=== PATIENT | female | born 1995 | race Caucasian/White ===

== ENCOUNTER → 2017-11-02 | Day surgery (SDC) | payer OTHER ==
[2017-10-16 09:39] VITALS: Ht 165.1 cm; Wt 122.7 kg
[2017-10-23 10:46] LABS: CALCIUM 9.1 mg/dl (8.5-10.1); CREATININE 0.84 mg/dl (0.60-1.20); POTASSIUM 4.1 mmol/L (3.5-5.1)
[~2017-11-02] VITALS: Ht 165.1 cm; Wt 122.7 kg
[~2017-11-02] MED LIST: ATROPINE SULFATE 0.1 MG/ML 5ML SYR IV PRN; BUPIVACAINE 0.25% 30 ML VIAL ONE; CEFAZOLIN 3000MG IV PUSH 22.5 ML IV SCH; DEXAMETHASONE SOD INJ 4 MG/ML VIAL ONE; EpINEphrine INJ 1MG/ML AMP 1 MG/ML AMP ONE; FENTANYL CITRATE INJ 50 MCG/1 ML 2 ML VIAL IV PRN; FENTANYL CITRATE INJ 50 MCG/1 ML 2 ML VIAL ONE; HYDR-5688 PO; HYDROCODONE/ACETAMIN 5/325MG TAB PO PRN; KETOROLAC TROMETHAMINE 30 MG/ML VIAL IV. PRN; LACTATED RINGER'S 1000ML 1,000 ML IV SCH; LIDOCAINE HCL 2% 2 ML VIAL (20MG/ML) ONE; LIDOCAINE HCL 2% LOCAL 20 ML VIAL ONE; MIDAZOLAM HCL 1 MG/ML 2ML VIAL ONE; ONDANSETRON INJ 2 MG/ML 2 ML VIAL IV PRN; ONDANSETRON INJ 2 MG/ML 2 ML VIAL ONE; PROPOFOL IV EMULSION 10 MG/ML 20 ML VIAL ONE; SODIUM CHLORIDE 0.9% 1000ML 1,000 ML IV SCH
--- NOTE | 2017-11-02 06:54 | History & Physical Bridge Note ---
H&P Re-Evaluation Bridge Note: I have examined the patient, reviewed the History & Physical and in the interval since the performance of the History & Physical I have noted the following changes of clinical significance: No changes noted
--- NOTE | 2017-11-02 07:49 | [facility] Post Operative Brief Note ---
Immediate Operative Summary Operative Date November 02, 2017. Pre-Operative Diagnosis Bilateral Wrists Ganglion Cysts Post-Operative Diagnosis Same Procedure(s) Performed Bilateral Wrists Ganglion Cyst Excision Surgeon Dr. Maldonado Child Welfare Caseworker Surgeon(s) Kirsten Abraham PA-C Estimated Blood Loss 5 ml Findings Consistent with Post-Op Diagnosis Specimens None Anesthesia Type General Disposition Disposition: Recovery Room / PACU
--- NOTE | 2017-11-02 07:52 | Discharge Instructions-SurgCtr ---
Discharge Instructions Date of Service November 02, 2017. Visit Reason for Visit: Bilateral Wrists Ganglion/Synovial Cysts Discharge Discharge Diagnosis / Problem: SAME ABOVE Discharge Goals Goal(s): Decrease discomfort, Improve function Activity Recommendations Activity Limitations: as noted below Lifting Limitations: gradually increase as tolerated Anesthesia . Post Anesthesia Instructions: If you have had General Anesthesia or IV Sedation: * Do not drive today. * Resume driving when surgeon permits. * Do not make important decisions or sign legal documents today. * Call surgeon for: 1. Temperature elevations greater than 101 degrees F. 2. Uncontrollable pain. 3. Excessive bleeding. 4. Persistent nausea and vomiting. 5. Medication intolerance (nausea, vomiting or rash). * For nausea and vomiting use only clear liquids such as: tea, soda, bouillon until nausea subsides, then gradually increase diet as tolerated. * If you have any concerns or questions, call your surgeon's office. If physician is unavailable and it is an emergency, call 911 or go to the nearest emergency room. . Instructions / Follow-Up Instructions / Follow-Up MEDICATIONS: * Resume previous medications unless instructed otherwise by your surgeon. * Always take pain medication on a full stomach or with food to avoid upset stomach. * Do not drink alcohol or drive while taking narcotics. * Ibuprofen or Tylenol may be taken if narcotic not needed. SPECIAL CARE INSTRUCTIONS: __ None _X_ Keep extremity elevated and iced x 48 hours; apply ice 20-30 minutes 8-10 times/day. May remove at night. __ Sling __24 hrs/day __ Remove at night __ Shoulder Immobilizer __ 24 hrs/day __ Remove at night _X_ Dressing __ Maintain until seen in office, may shower with plastic over site _X_ Remove dressings in 5 DAYS and then may shower (MAY SHOWER SOONER IF COVERED WITH PLASTIC BAG _X_ Cover incisions with band-aids after showering __ Do not remove steri-strips Call physician if chills or temperature rises above 102 degrees or pain unrelieved by prescribed pain medications at . . Diet Recommendations Home Diet: no limitations Fluid Restriction: None Procedures Procedures Performed: Bilateral Wrists Ganglion Cyst Excision Pending Studies Studies pending at discharge: no Work Instructions Return To Work: after follow-up Medical Emergencies . Who to Call and When: Medical Emergencies: If at any time you feel your situation is an emergency, please call 911 immediately. . Non-Emergent Contact Non-Emergency issues call your: Primary Care Provider Call Non-Emergent contact if: you have a fever, temperature is above 101.5 . . "Provider Documentation" section prepared by Kyle Abraham. .
[2017-11-02 08:24] VITALS: TEMP 36.2
[2017-11-02 08:42] VITALS: BP 137/86; PULSE 88; O2SAT 97
--- NOTE | 2017-11-02 08:51 | Anesthesia Progress Nt - [facility] ---
Anesthesia Post Op Note Date & Time November 02, 2017 at 08:51 Vital Signs Pain Intensity: 0 Vital Signs Past 12 Hours Date Time Temp Pulse Resp B/P (MAP) Pulse Ox O2 Delivery O2 Flow Rate FiO2 11/02/17 08:42 88 16 137/86 (103) 97 11/02/17 08:24 36.2 94 16 137/82 (100) 96 Room Air 11/02/17 08:19 36.3 11/02/17 08:15 98 133/77 (101) 93 11/02/17 08:15 98 11/02/17 08:10 100 137/90 (96) 97 11/02/17 08:10 100 11/02/17 08:06 122/75 (87) 11/02/17 08:05 102 100 11/02/17 08:05 Room Air 11/02/17 08:05 102 11/02/17 08:00 108 119/81 (104) 99 11/02/17 08:00 108 11/02/17 07:55 102 11/02/17 07:55 102 115/74 (80) 99 11/02/17 07:52 112/54 (64) 11/02/17 07:50 36.4 102 20 112/54 100 Diffusion Mask 5 11/02/17 06:28 36.9 90 16 153/105 (121) 96 Room Air Notes Mental Status: alert / awake / arousable, participated in evaluation Pt Amnestic to Procedure: Yes Nausea / Vomiting: adequately controlled Pain: adequately controlled Airway Patency, RR, SpO2: stable & adequate BP & HR: stable & adequate Hydration State: stable & adequate Anesthetic Complications: no major complications apparent
--- NOTE | 2017-11-02 09:42 | OPERATIVE REPORT ---
DATE OF OPERATION: 11/02/2017 PREOPERATIVE DIAGNOSIS: Ganglion cyst, bilateral wrists. POSTOPERATIVE DIAGNOSIS: Ganglion cyst, bilateral wrists. PROCEDURE: Open excision ganglion cyst, bilateral CMC joints. SURGEON: Adalid Maldonado DO SELF PAY SPECIALIST: Matthew Abraham PA-C, whose assistance was necessary for retraction and closure. ANESTHESIA: General. COMPLICATIONS: None. CONDITION: Stable to PACU. INDICATIONS: Porsche is a pleasant 22-year-old female who presented to my office with a two-year history of pain around the CMC joint of both wrists. When I saw her in the office, she had a rather significant ganglion cyst on the radial aspect of the CMC joints of both wrists. After failing conservative treatment, she elected to undergo ganglion cyst excision. On 11/02/2017, she arrived at [facility] for the above procedure. She was seen in the preoperative holding area and the operative extremity was identified and signed. She was given preoperative antibiotic, taken back to the operating room, laid on table in supine position and put under general anesthesia. Both wrists were then prepped and draped in sterile fashion. Time-out was done and the patient's operative extremity was properly identified. The ganglion cyst in both wrists were not quite as prominent as they were when I saw him in the office. I talked to the patient about this preoperatively, but she still wanted to proceed with an exploration and open up the capsule if necessary. A curvilinear incision was made over the radial aspect of the CMC joint. Dissection was taken down with care not to disrupt the neurovascular structures. The thenar muscles were slightly stripped of the radial palmar aspect. The interval was identified between the abductor pollicis longus and extensor pollicis brevis. I did not see any significant ganglion tissue. I did resect a small amount of tissue, which could been the ganglion capsule. I then decided to open up the CMC joint. A longitudinal incision was made just radial to the abductor pollicis longus. The CMC joint was opened up and some redundant soft tissue within the joint was removed. There was some synovial fluid, which was released. Time was spent palpating around the area for any significant additional ganglions and none were identified. The wound was then irrigated and closed with 4-0 nylon suture in a mattress fashion. Attention was then turned to the other wrist. A similar procedure was done. A curvilinear incision was made. Dissection was taken down to the CMC joint. CMC joint was opened up. I did remove a small amount of tissue, but I did not see any large significant ganglion cyst to be removed. The wounds were then irrigated and closed with 4-0 nylon suture. She was then placed in soft dressings extubated, transferred to a [facility] and taken to the postanesthesia care unit in stable condition. She tolerated the procedure well. I attest to the content of the Intraoperative Record and any orders documented therein. Any exception s are noted below.
== END | disposition home or self-care (01) ==
LOC: X.SURG 10-16 15:03
PROVIDERS: ATTEND Orthopaedic Surgery
DX: M67.431 Ganglion, right wrist (principal); M67.432 Ganglion, left wrist; I10 Essential (primary) hypertension; K21.9 Gastro-esophageal reflux disease without esophagitis; E66.9 Obesity, unspecified; Z68.42 Body mass index [BMI] 45.0-49.9, adult